=== PATIENT | female | born 1975 | race Caucasian/White ===

== ENCOUNTER 2017-12-01 19:53 | Observation (INO) | payer OTHER ==
[~2017-12-01] VITALS: Ht 170.2 cm; Wt 63.5 kg
[~2017-12-01 19:53] MED LIST: AMBIEN10 MG PO; [UNRECOGNIZED DRUG - OTHER]
[2017-12-01 21:30] LABS: BASOPHILS # (AUTO) 0.1 (0.0-0.1); BASOPHILS % 0.9 % (0.0-1.0); EOSINOPHILS % 0.1 % (0.0-6.0); LYMPHOCYTES # (AUTO) 1.7 (1.0-3.2); LYMPHOCYTES % 20.4 % (18.0-39.1); MEAN CORPUSCULAR HEMOGLOBIN 16.1 pg (28-32); MEAN CORPUSCULAR HGB CONC 24.5 g/dL (31-35); MEAN CORPUSCULAR VOLUME 65.7 fL (81-99); MONOCYTES # (AUTO) 0.3 (0.2-0.8); NEUTROPHILS # (AUTO) 6.3 (2.1-6.9); NEUTROPHILS % 74.1 % (38.7-80.0); PLATELET COUNT 340 x10e3/uL (140-360); RED BLOOD COUNT 4.72 x10e6/uL (3.6-5.1); RED CELL DISTRIBUTION WIDTH 21.5 % (11.7-14.4)
[2017-12-01 21:32] LABS: HEMOGLOBIN 7.6 g/dL (12.0-16.0)
[2017-12-01 21:35] LABS: INR 0.87; PROTHROMBIN TIME 12.3 seconds (11.9-14.5)
[2017-12-01 21:36] LABS: PARTIAL THROMBOPLASTIN TIME 27.5 seconds (23.8-35.5)
[2017-12-01 21:43] LABS: % IRON SATURATION 2 % (15-50); ALANINE AMINOTRANSFERASE 15 IU/L (0-55); ALBUMIN 4.2 g/dL (3.5-5.0); ALBUMIN/GLOBULIN RATIO 0.9 (0.8-2.0); ALKALINE PHOSPHATASE 107 IU/L (40-150); ANION GAP 14.9 mmol/L (8-16); BLOOD UREA NITROGEN 9 mg/dL (7-26); BUN/CREATININE RATIO 11 (6-25); CALCIUM 9.8 mg/dL (8.4-10.2); CARBON DIOXIDE 22 mmol/L (22-29); CHLORIDE 105 mmol/L (98-107); CREATININE, SERUM 0.85 mg/dL (0.57-1.11); EST GLOMERULAR FILTRATION RATE > 60 ML/MIN (60-); GLUCOSE 107 mg/dL (74-118); IRON 15 ug/dL (50-170); POTASSIUM 3.9 mmol/L (3.5-5.1); SODIUM 138 mmol/L (136-145); TOTAL IRON BINDING CAPACITY 759 ug/dL (261-478); TRANSFERRIN 542 mg/dL (180-382)
[2017-12-01 22:03] LABS: FERRITIN < 1.00 ng/mL (4.63-204.00)
[2017-12-02] VITALS: BP 163/73
[2017-12-02] MEDS ORDERED: SODIUM CHLORIDE 0.9% 250ML 250 ML IV ONE
[2017-12-02] MEDS ORDERED: FUROSEMIDE INJ 10 MG/ML 2 ML VIAL IV PRN
[2017-12-02] MEDS ORDERED: ONDANSETRON HCL INJ 2 MG/ML VIAL IV PRN
[2017-12-02] MEDS ORDERED: SODIUM CHLORIDE FLUSH 10 ML SYR INJ PRN
[2017-12-02 02:29] VITALS: BP 163/73
[2017-12-02] MEDS ORDERED: ENALAPRILAT IV INJ 1.25 MG/ML VIAL IV PRN (08:15)
[2017-12-02 08:27] VITALS: BP 109/60
[2017-12-02] MEDS ORDERED: FAMOTIDINE 20 MG TAB PO SCH (08:30)
[2017-12-02 08:36] LABS: BASOPHILS # (AUTO) 0.1 (0.0-0.1); BASOPHILS % 1.3 % (0.0-1.0); EOSINOPHILS % 0.3 % (0.0-6.0); HEMATOCRIT 32.9 % (34.2-44.1); HEMOGLOBIN 8.9 g/dL (12.0-16.0); LYMPHOCYTES # (AUTO) 2.1 (1.0-3.2); LYMPHOCYTES % 27.5 % (18.0-39.1); MEAN CORPUSCULAR HEMOGLOBIN 18.9 pg (28-32); MEAN CORPUSCULAR HGB CONC 27.1 g/dL (31-35); MONOCYTES # (AUTO) 0.7 (0.2-0.8); MONOCYTES % 8.4 % (4.4-11.3); NEUTROPHILS # (AUTO) 4.8 (2.1-6.9); NEUTROPHILS % 62.2 % (38.7-80.0); PLATELET COUNT 275 x10e3/uL (140-360); RED BLOOD COUNT 4.72 x10e6/uL (3.6-5.1); RED CELL DISTRIBUTION WIDTH 23.9 % (11.7-14.4)
[2017-12-02 09:08] LABS: MEAN CORPUSCULAR VOLUME 69.7 fL (81-99)
[2017-12-02 09:11] LABS: ALANINE AMINOTRANSFERASE 12 IU/L (0-55); ALBUMIN 3.6 g/dL (3.5-5.0); ALBUMIN/GLOBULIN RATIO 0.9 (0.8-2.0); ALKALINE PHOSPHATASE 93 IU/L (40-150); ANION GAP 11.9 mmol/L (8-16); BLOOD UREA NITROGEN 11 mg/dL (7-26); BUN/CREATININE RATIO 13 (6-25); CARBON DIOXIDE 24 mmol/L (22-29); CHLORIDE 104 mmol/L (98-107); CREATININE, SERUM 0.88 mg/dL (0.57-1.11); EST GLOMERULAR FILTRATION RATE > 60 ML/MIN (60-); GLUCOSE 91 mg/dL (74-118); POTASSIUM 3.9 mmol/L (3.5-5.1); SODIUM 136 mmol/L (136-145)
[2017-12-02 09:38] VITALS: BP 109/60
[2017-12-02 09:45] LABS: FOLATE 12.4 ng/mL (7.0-15.4)
[2017-12-02] MEDS ORDERED: SODIUM FERRIC GLUCONATE COMPLX 125 MG in SODIUM CHLORIDE 0.9% 100 ML 100 ML IV SCH (10:00)
[2017-12-02 12:37] LABS: ANISOCYTOSIS SLIGHT; HYPOCHROMASIA SLIGHT; LYMPHOCYTES % (MANUAL) 30 % (19-48); MONOCYTES % (MANUAL) 9 % (3.4-9.0); NEUTROPHILS % (MANUAL) 57 % (40-74); POIKILOCYTOSIS SLIGHT; PROMYELOCYTES % (MANUAL) 1 % (0-0)
[2017-12-02 12:38] LABS: PLATELET ESTIMATE ADEQUATE; PLATELET MORPHOLOGY COMMENT NORMAL; RBC MORPHOLOGY COMMENT NORMAL
[2017-12-02 12:41] VITALS: BP 130/62
[2017-12-02 16:47] VITALS: BP 136/81
--- NOTE | 2017-12-02 17:02 | History and Physical ---
SHORTSTAY SUMMARY PRIMARY CARE PROVIDER: Dr. Michel Barillas. ADMITTING DIAGNOSES 1. Symptomatic anemia. 2. Iron deficiency. 3. History of gastric bypass. DISCHARGE DIAGNOSES 1. Symptomatic anemia. 2. Iron deficiency. 3. History of gastric bypass. BRIEF HISTORY: Ms. Cerrato is a 42-year-old lady who came to the ER at the advice of her PCP for anemia. She had been a couple of days ago in the office. She is feeling even more weak and pale since then. REVIEW OF SYSTEMS: She denies fever, chills or weight loss. She denies sinus congestion or sore throat. Denies chest pain or palpitations. She denies shortness of breath, wheezing or cough. She denies abdominal pain, nausea, vomiting or melena. Denies dysuria or flank pain. Denies rash or pruritus. She denies bleeding or bruising. She denies headache, vertigo or loss of consciousness. She denies depression, agitation, homicidal or suicidal ideation. PAST MEDICAL HISTORY: Significant for chronic anemia due to iron deficiency. The patient has had a gastric bypass in the past. She is on no chronic medications. ALLERGIES: SHE HAS A STATED ALLERGY TO IRON, HYDROCODONE, BENADRYL, TRAMADOL AND ZITHROMAX. FAMILY HISTORY: Unremarkable. SOCIAL HISTORY: The patient is . Ukrainian is her primary language. She does not smoke, drink or use illegal drugs, and she is generally independently functioning. PHYSICAL EXAM: PSYCHIATRIC: She is alert and oriented times 3 with normal mood and affect. She has a normal body habitus. Is in no acute distress. VITAL SIGNS: Blood pressure 130/62. Pulse 94 and regular. Respiratory rate 18. O2 sat 100% on room air. Temperature 98.8. HEENT: Head is atraumatic. Eyes are anicteric with clear conjunctivae. Ears and nares are without erythema or discharge. Oropharynx is clear. NECK: Is supple with no mass or thyromegaly. LYMPHATIC SYSTEM: She has no palpable cervical, axillary or inguinal adenopathy. CARDIOVASCULAR: Her heart has regular rate and rhythm without murmur or extra heart sounds. No carotid bruit. No peripheral edema. She has palpable dorsal pedal pulses. RESPIRATORY: Lungs are clear to auscultation and percussion with normal respiratory effort. GASTROINTESTINAL: Abdomen is soft without organomegaly, masses or tenderness. She has normal bowel sounds present. CUTANEOUS: Her skin is warm and dry to touch with no rash or skin breakdown. MUSCULOSKELETAL: Joints are normal alignment without erythema or swelling. She has no calf tenderness. NEUROLOGIC: Exam is nonfocal with intact cranial nerves and no motor or sensory deficits. DIAGNOSTIC STUDIES: CBC shows a white count of 8.49 with a normal differential. Hemoglobin 7.6, hematocrit 31.0 and platelet count of 340,000. After 2 units of packed red cells, CBC shows a white count of 7.72 with a normal differential. Hemoglobin 8.9, hematocrit 32.9 and platelet count 275,000. Coags are normal. Chemistry profile shows normal electrolytes. CO2 24. Creatinine 0.88. BUN 11 for a normal GFR. Glucose 91. Transaminase, bilirubin and alkaline phos are normal. IMPRESSION AND PLAN 1. Symptomatic anemia. Will transfuse the patient 2 units of packed cells and in view of her iron deficiency will not give her iron. Her iron levels were on the low side with ferritin less than 1. Iron level 15, percent saturation 2, all of which are low. Her TSH is 1.411. B12 level of 718 and folic acid 12.4 which are both normal. The patient refuses any iron supplements and she is allergic and they make her bleed. Will discontinue the patient home to resume a regular diet and activity as tolerated. She has no home medications and is not taking iron and vitamins due to adverse reaction. She can follow up with her primary care provider within 2 weeks. Job#: [id number]
[2017-12-02] MEDS ORDERED: TEMAZEPAM 15 MG CAP PO SCH (21:00)
[2017-12-02] MEDS ORDERED: ZOLPIDEM TARTRATE 10 MG TAB PO SCH (21:00)
== END 2017-12-02 17:00 | disposition home or self-care (01) ==
LOC: ER 19:53 → ERHOLD 12-02 00:05 → IMCU 12-02 00:39
PROVIDERS: ADMIT Internal Medicine; ATTEND Internal Medicine
DX: D50.0 Iron deficiency anemia secondary to blood loss (chronic) (principal); Z98.0 Intestinal bypass and anastomosis status; Z88.1 Allergy status to other antibiotic agents; Z88.8 Allergy status to other drugs, medicaments and biological substances; Z91.048 Other nonmedicinal substance allergy status
CPT/HCPCS: 36430; P9016; 36415; 80053; 82270; 82607; 82728; 82746; 83540; 84443; 84466; 85025; 85610; 85730; 86850; 86900; 86920; 93005; 99284; G0378; J2916; J7050

== ENCOUNTER 2018-01-05 13:16 | Inpatient (IN) | payer OTHER ==
[~2018-01-05] VITALS: Ht 170.2 cm; Wt 60.3 kg
[2018-01-05] MEDS ORDERED: MORPHINE SULFATE 4 MG/ML SYR IV STA (13:18)
[2018-01-05] MEDS ORDERED: SODIUM CHLORIDE 0.9% 1000ML 1,000 ML IV STA ×2 (13:18→15:58)
[2018-01-05] MEDS ORDERED: ONDANSETRON HCL INJ 2 MG/ML VIAL IV STA (13:18)
--- OUTSIDE RECORDS SUMMARY | 2018-01-05 13:19 | XMS REPORT | Continuity of Care Document ---
Author Author [facility] Organization [facility] Address [address] [place] [address] Phone Unavailable Care Team Providers Care Garment Turner Name Role Phone KHOA RODRIGUEZ DO PCP Insurance Providers Guarantor Suze Alva Address [address] [place] [address] Email [email or web address] Payer [employer] Pos Policy Number [id number] Subscriber's Name Mackenzie Alva Jr Relationship 01 Group Number [id number] Group Name [employer] Effective Date 06 Advance Directives Directive Response Recorded Date/Time Does the patient have an advance directive? No 12/02/17 2:15am If yes, is advance directive on file with [facility]? No 12/02/17 2:15am If not on file with [facility] will patient provide a copy? No 12/02/17 2:15am Do you have a Directive to Physician? No 12/01/17 7:51pm Do you have a Medical Power of Home Care Assistant? No 12/01/17 7:51pm Do you have an out of hospital Do Not Resuscitate Order? No 12/01/17 7:51pm Do you have any special needs we should be aware of? No 12/01/17 7:51pm Do you have a support person here with you today? No 12/01/17 7:51pm Did patient receive Notice of Privacy Practices? Yes 12/01/17 7:51pm Did patient receive patient rights and responsibilities? Yes 12/01/17 7:51pm Problems Medical Problem Onset Date Status Anemia 04/21/2015 Acute Symptomatic anemia Unknown Medications Current Home MedicationsNo current home medication information available. Past Home Medications Medication Directions Ordered Status Zolpidem Tartrate (Ambien) 10 Mg Tablet, 20 Mg Oral Bedtime Discontinued Social History Social History Problem Response Recorded Date/Time Onset Date Status Hx Psychiatric Problems Yes 12/02/2017 2:15am Not Applicable Not Applicable Hx Eating Disorder Yes 12/02/2017 2:15am Not Applicable Not Applicable Hx Substance Use Disorder No 12/02/2017 2:15am Not Applicable Not Applicable Hx Depression Yes 12/02/2017 2:15am Not Applicable Not Applicable Hx Alcohol Use No 12/02/2017 2:15am Not Applicable Not Applicable Hx Substance Use Treatment No 12/02/2017 2:15am Not Applicable Not Applicable Hx Physical Abuse No 12/02/2017 2:15am Not Applicable Not Applicable Smoking Status Start Date Stop Date Unknown if ever smoked Hospital Discharge Instructions No hospital discharge instruction information available. Plan of Care Discharge Date 12/02/17 5:00pm Disposition HOME, SELF-CARE Instructions/Education Provided Anemia Prescriptions See Medication Section Additional Instructions/Education Regular diet Activity as tolerated f/u PCP w/in 2wks Functional Status Query Response Date Recorded Assistive Devices None December 02, 2017 2:29am Ambulation Ability Independent December 02, 2017 2:29am Toileting Ability Independent December 02, 2017 2:29am Allergies, Adverse Reactions, Alerts Allergen Type Severity Reaction Status Last Updated Iron Allergy Unknown Active 12/02/17 Hydrocodone Allergy Mild Active 09/14/10 Azithromycin Allergy Severe HIVES Active 09/14/10 Tramadol Allergy Intermediate TONGUE SWELLING, ITCHING, RASH Active Diphenhydramine Allergy Intermediate ADVERSE Active 09/14/10 Immunizations No immunization information available. Vital Signs Acute Vital Signs Vital Response Date/Time Temperature (Fahrenheit) 99.2 degrees F (97.6 - 99.5) 12/02/2017 4:47pm Pulse Pulse Rate (adult) 87 bpm (60 - 90) 12/02/2017 4:47pm Respiratory Rate 18 bpm (12 - 24) 12/02/2017 4:47pm Blood Pressure 136/81 mm Hg 12/02/2017 4:47pm Height 5 ft 7 in 12/01/2017 9:08pm Weight 140 lb 12/02/2017 2:15am Body Mass Index 21.9 kg/m^2 12/02/2017 2:15am Results Laboratory Results Test Name Result Units Flags Reference Collection Date/Time Result Date/ Time Comments White Blood Count 7.72 x10e3/uL 4.8-10.8 12/02/2017 8:13am 12/02/2017 9 :09am Red Blood Count 4.72 x10e6/uL 3.6-5.1 12/02/2017 8:13am 12/02/2017 9: 09am Hemoglobin 8.9 g/dL L 12.0-16.0 12/02/2017 8:13am 12/02/2017 9:09am Hematocrit 32.9 % L 34.2-44.1 12/02/2017 8:13am 12/02/2017 9:09am Mean Corpuscular Volume 69.7 fL # L 81-99 12/02/2017 8:13am 12/02/2017 9: 09am verified previous results Mean Corpuscular Hemoglobin 18.9 pg L 28-32 12/02/2017 8:132017 9:09am Mean Corpuscular Hemoglobin Concent 27.1 g/dL L 31-35 12/02/2017 8:1312/02/2017 9:09am Red Cell Distribution Width 23.9 % H 11.7-14.4 12/02/2017 8:132017 9:09am Platelet Count 275 x10e3/uL 140-360 12/02/2017 8:13am 12/02/2017 9: 09am Neutrophils (%) (Auto) 62.2 % 38.7-80.0 12/02/2017 8:13am 12/02/2017 9: 09am Lymphocytes (%) (Auto) 27.5 % 18.0-39.1 12/02/2017 8:12/02/2017 9: 09am Monocytes (%) (Auto) 8.4 % 4.4-11.3 12/02/2017 8:12/02/2017 9: 09am Eosinophils (%) (Auto) 0.3 % 0.0-6.0 12/02/2017 8:12/02/2017 9: 09am Basophils (%) (Auto) 1.3 % H 0.0-1.0 12/02/2017 8:12/02/2017 9: 09am IM GRANULOCYTES % 0.3 % 0.0-1.0 12/02/2017 8:12/02/2017 9:09am Neutrophils # (Auto) 4.8 2.1-6.9 12/02/2017 8:12/02/2017 9:09am Lymphocytes # (Auto) 2.1 1.0-3.2 12/02/2017 8:12/02/2017 9:09am Monocytes # (Auto) 0.7 0.2-0.8 12/02/2017 8:12/02/2017 9:09am Eosinophils # (Auto) 0.0 0.0-0.4 12/02/2017 8:12/02/2017 9:09am Basophils # (Auto) 0.1 0.0-0.1 12/02/2017 8:12/02/2017 9:09am Absolute Immature Granulocyte (auto 0.02 x10e3/uL 0-0.1 12/02/2017 8: 12/02/2017 9:09am Differential Total Cells Counted 100 12/02/2017 8:12/02/2017 12:38pm Neutrophils % (Manual) 57 % 40-74 12/02/2017 8:12/02/2017 12:38pm Lymphocytes % (Manual) 30 % 19-48 12/02/2017 8:12/02/2017 12:38pm Monocytes % (Manual) 9 % 3.4-9.0 12/02/2017 8:12/02/2017 12:38pm Basophils % (Manual) 3 % H 0-1.5 12/02/2017 8:12/02/2017 12:38pm Promyelocytes % 1 % H 0-0 12/02/2017 8:1312/02/2017 12:38pm Platelet Estimate ADEQUATE 12/02/2017 8:12/02/2017 12:38pm Platelet Morphology Comment NORMAL 12/02/2017 8:1312/02/2017 12: 38pm Hypochromasia SLIGHT 12/02/2017 8:1312/02/2017 12:38pm Poikilocytosis SLIGHT 12/02/2017 8:12/02/2017 12:38pm Anisocytosis SLIGHT 12/02/2017 8:1312/02/2017 12:38pm Red Cell Morphology Comment NORMAL 12/02/2017 8:1312/02/2017 12: 38pm Prothrombin Time 12.3 seconds 11.9-14.5 12/01/2017 9:04pm 12/01/2017 9: 35pm Prothromb Time International Ratio 0.87 12/01/2017 9:04pm 2017 9:35pm Oral Anticoagulant Therapy INR Values: 1. Low Intensity Therapy 1.5 - 2.0 2. Moderate Intensity Therapy 2.0 - 3.0 3. High Intensity Therapy(1) 2.5 - 3.5 4. High Intensity Therapy(2) 3.0 - 4.0 5. Panic Value INR > 5.0 Activated Partial Thromboplast Time 27.5 seconds 23.8-35.5 12/01/2017 9: 04pm 12/01/2017 9:39pm Sodium Level 136 mmol/L 136-145 12/02/2017 8:13am 12/02/2017 9:13am Potassium Level 3.9 mmol/L 3.5-5.1 12/02/2017 8:1312/02/2017 9:13am Chloride Level 104 mmol/L 98-107 12/02/2017 8:13am 12/02/2017 9:13am Carbon Dioxide Level 24 mmol/L 22-29 12/02/2017 8:13am 12/02/2017 9: 13am Anion Gap 11.9 mmol/L 8-16 12/02/2017 8:13am 12/02/2017 9:13am Blood Urea Nitrogen 11 mg/dL 7-12/02/2017 8:1312/02/2017 9:13am Creatinine 0.88 mg/dL 0.57-1.11 12/02/2017 8:13am 12/02/2017 9:13am BUN/Creatinine Ratio 13 6-25 12/02/2017 8:13am 12/02/2017 9:13am Estimat Glomerular Filtration Rate > 60 ML/MIN 60- 12/02/2017 8:13am 9:13am Ranges were taken from the National Kidney Disease Education Program and the National Kidney Foundation literature. Reference ranges: 60 or greater: Normal 16-59 (for 3 consecutive months): Chronic kidney disease 15 or less: Kidney failure Glucose Level 91 mg/dL 74-118 12/02/2017 8:13am 12/02/2017 9:13am Calcium Level 9.0 mg/dL 8.4-10.2 12/02/2017 8:13am 12/02/2017 9:13am Iron Level 15 ug/dL L 50-170 12/01/2017 9:04pm 12/01/2017 9:45pm Total Iron Binding Capacity 759 ug/dL H 261-478 12/01/2017 9:04pm 2017 9:45pm Percent Iron Saturation 2 % L 15-50 12/01/2017 9:04pm 12/01/2017 9:45pm Transferrin 542 mg/dL H 180-382 12/01/2017 9:04pm 12/01/2017 9:45pm Ferritin < 1.00 ng/mL L 4.63-204.00 12/01/2017 9:04pm 12/01/2017 10: 03pm Total Bilirubin 1.4 mg/dL H 0.2-1.2 12/02/2017 8:13am 12/02/2017 9:13am Aspartate Amino Transf (AST/SGOT) 20 IU/L 5-34 12/02/2017 8:13am 2017 9:13am Alanine Aminotransferase (ALT/SGPT) 12 IU/L 0-55 12/02/2017 8:13am 06/2018 9:13am Total Protein 7.6 g/dL 6.5-8.1 12/02/2017 8:13am 12/02/2017 9:13am Albumin 3.6 g/dL 3.5-5.0 12/02/2017 8:13am 12/02/2017 9:13am Globulin 4.0 g/dL H 2.3-3.5 12/02/2017 8:13am 12/02/2017 9:13am Albumin/Globulin Ratio 0.9 0.8-2.0 12/02/2017 8:13am 12/02/2017 9: 13am Alkaline Phosphatase 93 IU/L 40-150 12/02/2017 8:13am 12/02/2017 9: 13am Vitamin B12 Level 718 pg/mL 213-816 12/02/2017 8:13am 12/02/2017 9: 50am Folate 12.4 ng/mL 7.0-15.4 12/02/2017 8:13am 12/02/2017 9:50am Thyroid Stimulating Hormone (TSH) 1.411 uIU/mL 0.350-4.940 12/02/2017 8: 13am 12/02/2017 10:07am Stool Occult Blood NEGATIVE NEGATIVE 12/02/2017 12:49pm 12/02/2017 1: 33pm Procedures No procedure information available. Encounters Encounter Location Arrival/Admit Date Discharge/Depart Date Attending Provider Discharged Inpatient (obs) [facility] 12/02/17 12:05am 5:00pm BIANCA HARTMAN MD
[2018-01-05] MEDS ORDERED: MORPHINE SULFATE 2 MG/ML SYR IV SCH (13:45)
[2018-01-05 13:59] LABS: BILIRUBIN,URINE NEGATIVE (NEGATIVE); CLARITY,URINE CLEAR (CLEAR); COLOR,URINE YELLOW (YELLOW); KETONES,URINE NEGATIVE (NEGATIVE); LEUKOCYTE ESTERASE ,URINE NEGATIVE (NEGATIVE); NITRITE,URINE NEGATIVE (NEGATIVE); PROTEIN,URINE DIPSTICK NEGATIVE (NEGATIVE); URINE UROBILINOGEN 0.2 mg/dL (0.2 - 1)
[2018-01-05 14:14] LABS: BACTERIA,URINE FEW /HPF; EPITHELIAL CELLS,URINE FEW /LPF; RBC,URINE 0-5 /HPF (0-5)
[2018-01-05 14:16] LABS: ALANINE AMINOTRANSFERASE 12 IU/L (0-55); ALBUMIN/GLOBULIN RATIO 0.9 (0.8-2.0); ALKALINE PHOSPHATASE 72 IU/L (40-150); ANION GAP 11.8 mmol/L (8-16); BLOOD UREA NITROGEN 12 mg/dL (7-26); BUN/CREATININE RATIO 15 (6-25); CARBON DIOXIDE 24 mmol/L (22-29); CHLORIDE 105 mmol/L (98-107); CREATININE, SERUM 0.81 mg/dL (0.57-1.11); EST GLOMERULAR FILTRATION RATE > 60 ML/MIN (60-); GLUCOSE 160 mg/dL (74-118); LIPASE 56 U/L (8-78); POTASSIUM 3.8 mmol/L (3.5-5.1); SODIUM 137 mmol/L (136-145)
[2018-01-05 14:33] LABS: BASOPHILS # (AUTO) 0.1 (0.0-0.1); BASOPHILS % 0.6 % (0.0-1.0); HEMATOCRIT 24.4 % (34.2-44.1); LYMPHOCYTES # (AUTO) 0.6 (1.0-3.2); LYMPHOCYTES % 5.7 % (18.0-39.1); MEAN CORPUSCULAR HEMOGLOBIN 20.4 pg (28-32); MEAN CORPUSCULAR HGB CONC 27.9 g/dL (31-35); MEAN CORPUSCULAR VOLUME 73.1 fL (81-99); MONOCYTES # (AUTO) 0.3 (0.2-0.8); MONOCYTES % 3.1 % (4.4-11.3); NEUTROPHILS # (AUTO) 8.8 (2.1-6.9); NEUTROPHILS % 89.8 % (38.7-80.0); PLATELET COUNT 445 x10e3/uL (140-360); RED BLOOD COUNT 3.34 x10e6/uL (3.6-5.1); RED CELL DISTRIBUTION WIDTH 25.2 % (11.7-14.4)
[2018-01-05 14:35] LABS: HEMOGLOBIN 6.8 g/dL (12.0-16.0)
[2018-01-05 15:00] LABS: INR 0.99; PROTHROMBIN TIME 12.3 seconds (11.9-14.5)
[2018-01-05 15:01] LABS: PARTIAL THROMBOPLASTIN TIME 27.5 seconds (23.8-35.5)
[2018-01-05] MEDS ORDERED: PANTOPRAZOLE 40 MG 10ML VIAL IV STA (15:58)
[2018-01-05] MEDS ORDERED: ACETAMINOPHEN 325 MG TAB PO STA (15:58)
[2018-01-05] MEDS ORDERED: SODIUM CHLORIDE 0.9% 250ML 250 ML IV ONE (16:00)
[2018-01-05] MEDS: SODIUM CHLORIDE 0.9% 1000ML 1,000 ML IV SCH (16:02)
[2018-01-05] MEDS ORDERED: MORPHINE SULFATE 2 MG/ML SYR IV PRN (16:15)
[2018-01-05] MEDS ORDERED: SODIUM CHLORIDE 0.9% 50ML 50 ML ONE (16:24)
[2018-01-05] MEDS ORDERED: IOPAMIDOL 370 MG/ML 200 ML INFUS..BTL INJ ONE (16:25)
--- NOTE | 2018-01-05 16:30 | Diagnostic Imaging Report ---
PROCEDURE: CT ABDOMEN AND PELVIS WITH CONTRAST TECHNIQUE: The abdomen and pelvis were scanned utilizing a multidetector helical scanner from the diaphragm to the lesser trochanter after the IV administration of 100 cc of Isovue 370 and the oral administration of water. Coronal and sagittal multiplanar reformations were obtained. DLP: 216.97 mGy*cm COMPARISON: [facility], CT, CT ABDOMEN/PELVIS W, 04/22/2015, 22:34. INDICATIONS: RIGHT LOWER QUADRANT ABDOMINAL PAIN FINDINGS: LOWER THORAX: Tiny right pleural effusion. HEPATOBILIARY: No focal hepatic lesions. No biliary ductal dilatation. Gallbladder is absent. SPLEEN: No splenomegaly. PANCREAS: No focal masses or ductal dilatation. ADRENALS: No adrenal nodules. KIDNEYS/URETERS: No hydronephrosis, stones, or solid mass lesions. PELVIC ORGANS/BLADDER: Unremarkable. There is a Lee catheter and air present within the bladder. PERITONEUM / RETROPERITONEUM: Mild amount of abdominal and pelvic ascites. This is new compared to the prior study. LYMPH NODES: No lymphadenopathy. VESSELS: Unremarkable. GI TRACT: No distention or wall thickening. Postsurgical changes associated with a gastric bypass. The appendix is not visualized. BONES AND SOFT TISSUES: Unremarkable. IMPRESSION: 1. Mild amount of abdominal and pelvic ascites appears new compared to the prior study. 2. Otherwise no acute abdominal or pelvic abnormality. 3. There is a tiny right pleural effusion. Cameron Stearns D.O. Dictated by: Cameron Stearns D.O. on 01/05/2018 at 16:30 Electronically approved by: Cameron Stearns D.O. on 01/05/2018 at 16:30
[2018-01-05] MEDS: PANTOPRAZOLE 40 MG 10ML VIAL IV SCH (17:00)
[2018-01-05] MEDS: ONDANSETRON HCL INJ 2 MG/ML VIAL IV PRN ×2 (17:06→23:30)
[2018-01-05] MEDS: CEFTRIAXONE SOD 1 GM VIAL IV SCH (17:06)
[2018-01-05 18:24] VITALS: BP 114/60
[2018-01-05 18:28] VITALS: BP 114/60
[2018-01-05 18:29] VITALS: BP 114/60
[2018-01-05] MEDS ORDERED: HYDRALAZINE HCL 20 MG/ML VIAL IV PRN (18:45)
[2018-01-05] MEDS ORDERED: LORAZEPAM INJ 2 MG/ML VIAL IV PRN (18:45)
[2018-01-05] MEDS ORDERED: ACETAMINOPHEN 650 MG SUPP PR PRN (18:45)
[2018-01-05 18:56] VITALS: BP 114/60
[2018-01-05] MEDS: HYDROMORPHONE 1MG/1ML INJ IV PRN ×2 (19:05→23:29)
[2018-01-05 20:00] VITALS: BP 139/72
[2018-01-05] MEDS: FAMOTIDINE 20 MG/2 ML VIAL IV PRN ×2 (20:00→23:20)
[2018-01-05] MEDS: ACETAMINOPHEN 325 MG TAB PO PRN ×2 (23:12→23:23)
[2018-01-05] MEDS ORDERED: PEG (High)/E-LYTE SOLN 4,000 ML BTL PO ONE (23:15)
[2018-01-06] VITALS (7 sets, daily range): BP systolic 117–140; BP diastolic 68–86
[2018-01-06] MEDS: ACETAMINOPHEN/CODEINE 300MG - 30MG TAB PO PRN ×2 (03:25→15:40)
[2018-01-06] MEDS: SODIUM CHLORIDE 0.9% 1000ML 1,000 ML IV SCH ×6 (05:00→21:50)
[2018-01-06] MEDS: ONDANSETRON HCL INJ 2 MG/ML VIAL IV PRN (06:13)
[2018-01-06] MEDS: HYDROMORPHONE 1MG/1ML INJ IV PRN ×3 (06:13→20:48)
[2018-01-06 08:03] LABS: BASOPHILS % 0.3 % (0.0-1.0); HEMATOCRIT 41.8 % (34.2-44.1); HEMOGLOBIN 12.5 g/dL (12.0-16.0); LYMPHOCYTES # (AUTO) 0.3 (1.0-3.2); LYMPHOCYTES % 1.8 % (18.0-39.1); MEAN CORPUSCULAR HEMOGLOBIN 22.9 pg (28-32); MEAN CORPUSCULAR HGB CONC 29.9 g/dL (31-35); MEAN CORPUSCULAR VOLUME 76.7 fL (81-99); MONOCYTES # (AUTO) 0.9 (0.2-0.8); MONOCYTES % 6.5 % (4.4-11.3); NEUTROPHILS # (AUTO) 13.1 (2.1-6.9); NEUTROPHILS % 91.2 % (38.7-80.0); PLATELET COUNT 764 x10e3/uL (140-360); RED BLOOD COUNT 5.45 x10e6/uL (3.6-5.1); RED CELL DISTRIBUTION WIDTH 25.7 % (11.7-14.4)
[2018-01-06 08:21] LABS: ALBUMIN/GLOBULIN RATIO 0.8 (0.8-2.0); ANION GAP 16.6 mmol/L (8-16); CALCIUM 9.2 mg/dL (8.4-10.2); CREATININE, SERUM 1.23 mg/dL (0.57-1.11); POTASSIUM 4.6 mmol/L (3.5-5.1)
[2018-01-06 08:58] LABS: MAGNESIUM 1.6 MG/DL (1.3-2.1)
[2018-01-06] MEDS: PANTOPRAZOLE 40 MG 10ML VIAL IV SCH (09:00)
[2018-01-06] MEDS ORDERED: HYDRALAZINE HCL 20 MG/ML VIAL IV PRN (09:00)
[2018-01-06 09:24] LABS: THYROID STIMULATING HORMONE 0.307 uIU/mL (0.350-4.940)
[2018-01-06 09:25] LABS: FERRITIN 6.06 ng/mL (4.63-204.00)
[2018-01-06 09:27] LABS: BAND NEUTROPHILS % (MANUAL) 4 %; LYMPHOCYTES % (MANUAL) 1 % (19-48); MONOCYTES % (MANUAL) 8 % (3.4-9.0); NEUTROPHILS % (MANUAL) 87 % (40-74)
[2018-01-06 09:28] LABS: PLATELET ESTIMATE MODERATELY INCREASED; PLATELET MORPHOLOGY COMMENT FEW GIANT; RBC MORPHOLOGY COMMENT ABNORMAL
[2018-01-06 09:30] LABS: ANISOCYTOSIS MODERATE; POIKILOCYTOSIS MODERATE
[2018-01-06 09:35] LABS: FOLATE 11.3 ng/mL (7.0-15.4)
[2018-01-06] MEDS ORDERED: PANTOPRAZOLE 40 MG 10ML VIAL IV SCH (13:15)
--- NOTE | 2018-01-06 13:25 | Diagnostic Imaging Report ---
PROCEDURE:X-RAY ABDOMEN - KUB COMPARISON:CT dated 01/05/2018 INDICATIONS:ABDOMINAL PAIN FINDINGS: Dilated air-filled bowel loops in the left abdomen. No rectal air is visualized. No signs of pneumoperitoneum. Surgical clips overlying upper abdomen. No acute osseous abnormality. CONCLUSION: Dilated bowel loops, mostly in the left abdomen, suspicious for postsurgical ileus versus at least partial bowel obstruction. Recommend short-term followup. Dictated by: Nicola De M.D. on 01/06/2018 at 13:25 Electronically approved by: Nicola De M.D. on 01/06/2018 at 13:25
[2018-01-06] MEDS ORDERED: DEXTROSE 50% SYRINGE 50 ML IV PRN (13:30)
[2018-01-06] MEDS: PANTOPRAZOLE INJ 40 MG in SODIUM CHLORIDE 0.9% 50ML 50 ML IV SCH ×3 (13:57→23:15)
--- NOTE | 2018-01-06 14:13 | History and Physical ---
PRIMARY CARE PROVIDER: Dr. Michel Barillas. CHIEF COMPLAINT: Abdominal pain. HISTORY OF PRESENT ILLNESS: Ms. Cerrato is a 42-year-old lady presenting with epigastric and right upper quadrant abdominal pain for the last couple of days. The patient was seen here a couple of weeks ago for weakness and found to be anemic, was given 2 units of blood and sent home. Saw Dr. Bliss, GI doctor, as an outpatient a few days ago but has had no endoscopy done yet. Patient presents now with epigastric and right upper quadrant pain for the last couple of days, again feeling weak and short of breath, and was found to have a hemoglobin of 6.8. REVIEW OF SYSTEMS: She denies fever, chills or weight loss. She denies sinus congestion or sore throat. She denies chest pain or palpitations. She has shortness of breath and dyspnea with exertion. She denies wheezing or cough. She has severe abdominal pain in the epigastric and right upper quadrant area. She has had some nausea and vomiting. She denies diarrhea. She denies hematemesis or melena. She denies dysuria or flank pain. She denies rash or pruritus. She denies joint pain or swelling. She denies headache, vertigo or loss of consciousness. She denies bleeding or bruising. She denies depression, agitation, homicidal or suicidal ideation. PAST MEDICAL HISTORY: Essentially unremarkable. She is on no chronic medication. PAST SURGICAL HISTORY: Includes gastric bypass in 2004. 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 ALLERGIES: SHE HAS STATED ALLERGIES TO BENADRYL, TRAMADOL, ZITHROMAX, HYDROCODONE AND IRON. FAMILY HISTORY: Unremarkable. SOCIAL HISTORY: The patient is . She is . Indian is her primary language. She does not smoke, drink or use illegal drugs. She is generally independently functioning. PHYSICAL EXAMINATION PSYCHIATRIC: She is alert and oriented times 3 with normal mood and affect. CONSTITUTIONAL: She has a normal body habitus. She is in no acute distress. VITAL SIGNS: Blood pressure 119/68. Pulse 101 and regular. Respiratory rate 18. O2 sat 95% on room air. Temperature 98.4. HEENT: Head is atraumatic. Eyes are anicteric with clear conjunctivae. Ears and nares are without erythema or discharge. Oropharynx is clear. NECK: Supple with no mass or thyromegaly. LYMPHATIC SYSTEM: She has no palpable cervical, axillary or inguinal adenopathy. CARDIOVASCULAR: Her heart has a regular rate and rhythm without murmur or extra heart sound. She has no carotid bruit. She has no peripheral edema. She has palpable dorsal pedal pulses. RESPIRATORY: Lungs are clear to auscultation and percussion with normal respiratory effort. GASTROINTESTINAL: Abdomen is tense. She has severe tenderness in the epigastric and right upper quadrant area with some guarding. No rebound. She has no hepatosplenomegaly or masses palpable, and normal bowel sounds are present. CUTANEOUS: Her skin is warm and dry to touch. No rash or skin breakdown. MUSCULOSKELETAL: Her joints are in normal alignment without erythema or swelling. She has no calf tenderness. NEUROLOGIC: Exam is nonfocal with intact cranial nerves and no motor or sensory deficits. DIAGNOSTIC STUDIES: CT scan of the abdomen shows a small amount of ascites but, otherwise, is unremarkable and shows no acute disease. Her UA has 6 to 10 white cells. Culture is negative at 24 hours. Her fecal occult blood test was positive. Her serum was negative. TSH 0.307. Iron 29, TIBC 501, and percent saturation 6, all indicating iron deficiency. B12 1461 and folic acid 11.3, both normal. Her CBC shows a white count of 9.85 with 90% neutrophils, 6% lymphocytes, 3% monocytes, hemoglobin 6.8, hematocrit 24.4, platelet count 445,000. Coags are normal. Her chemistry shows normal electrolytes, CO2 24, creatinine 0.81, BUN 12, glucose 160 and calcium 8.0. IMPRESSION AND PLAN 1. Severe abdominal pain. Etiology is unclear. CT scan is not helpful. Possible ulcer in view of her anemia. GI has been consulted for endoscopy. 2. Upper gastrointestinal bleed with positive fecal occult blood test. The patient has been started on IV Protonix drip, and GI has been consulted. 3. Acute blood loss anemia. The patient has received 2 units of blood, resulting in hemoglobin of 12.5 and hematocrit 41.8. 4. Iron deficiency. We will have to monitor for now, as patient is allergic to iron. May require hem consult before this is all done. 5. Hyperglycemia without previous diagnosis of diabetes. Will place the patient on sliding scale insulin and check a hemoglobin A1c level. 6. For prophylaxis, the patient will be using SCDs for DVT prophylaxis and Protonix for GI prophylaxis. Job#: [id number] MH
[2018-01-06] MEDS ORDERED: SOD PHOSPHATE/SOD BIPHOSPHATE ENEMA 132 ML BTL PR NR (15:00)
[2018-01-06] MEDS ORDERED: GLYCOPYRROLATE INJ 1MG/ 5 ML SYR ONE (15:21)
[2018-01-06] MEDS ORDERED: LIDOCAINE HCL 2% LOCAL INJ 5 ML SDV VIAL INJ ONE (15:21)
[2018-01-06] MEDS ORDERED: PHENYLEPHRINE HCL 1% 10 MG/ML VIAL ONE (15:21)
[2018-01-06] MEDS ORDERED: NEOSTIGMINE 5 MG/5ML SYR ONE (15:21)
[2018-01-06] MEDS ORDERED: DEXAMETHASONE SOD PHOS INJ 4 MG/ML VIAL ONE (15:21)
[2018-01-06] MEDS ORDERED: PROPOFOL IV EMULSION 10 MG/ML 20 ML VIAL ONE (15:21)
[2018-01-06] MEDS ORDERED: ROCURONIUM BROMIDE 10 MG/ML 5ML VIAL ONE (15:21)
[2018-01-06] MEDS ORDERED: ONDANSETRON HCL INJ 2 MG/ML VIAL ONE (15:21)
[2018-01-06] MEDS ORDERED: SEVOFLURANE INHAL SOLN 250 ML PEN BTL ONE (15:21)
[2018-01-06] MEDS: INSULIN REGULAR, HUMAN 100 UNIT/1 ML 3ML VIAL SQ SCH ×2 (15:34→21:00)
[2018-01-06] MEDS: CEFTRIAXONE SOD 1 GM VIAL IV SCH (16:27)
[2018-01-06] MEDS ORDERED: FENTANYL CITRATE/PF 100MCG/2 ML INJ ONE (18:28)
[2018-01-06] MEDS ORDERED: MIDAZOLAM HCL 2 MG/2 ML VIAL ONE (18:28)
--- NOTE | 2018-01-06 19:37 | Consultation ---
DATE OF CONSULTATION: January 06, 2018 SURGICAL CONSULTATION CHIEF COMPLAINT: Abdominal pain. HISTORY OF PRESENT ILLNESS: The patient is a 42-year-old female with a several-day history of epigastric abdominal pain in the right upper quadrant particularly, with nausea, anorexia. No vomiting. The patient has no flatus or bowel movements. The patient has a history of gastric bypass 2005 complicated by volvulus. The patient has had chronic anemia requiring recurrent blood transfusions, last given 2 weeks ago. The patient is again noted to be anemic. PAST MEDICAL HISTORY: As mentioned is positive for chronic anemia with history of multiple surgeries including gastric bypass, repair of gastric volvulus and colonic perforations. ALLERGIES: SHE IS ALLERGIC TO TRAMADOL, CODEINE AND BENADRYL. REVIEW OF SYSTEMS: She has no chest pain. No shortness of breath. SOCIAL HABITS: No smoking or alcohol abuse. PHYSICAL EXAMINATION: VITALS: Stable. The patient is mildly tachycardic, 120 of heart rate. GENERAL: She is awake, alert, in moderate discomfort. HEENT: Sclerae anicteric. NECK: Supple. LUNGS: Clear. HEART: Regular rate and rhythm. ABDOMEN: Guarding diffusely with tenderness to palpation in all 4 quadrants. No rebound. EXTREMITIES: Without cyanosis or edema. LAB DATA: White cell count is 14, hemoglobin of 12, platelet count of 764. INR of 0.9. CT OF THE ABDOMEN: Abdominal and pelvic ascites. ABDOMINAL X-RAY: Showed evidence of dilated loops of small bowel in the left abdomen suggestive of partial bowel obstruction. ASSESSMENT: Abdominal pain with distended small bowel in patient who had gastric bypass and gastric volvulus. Suspicious for internal herniations. PLAN: Diagnostic laparoscopy, possible open bowel resection. Thank you for the consultation. Job#: [id number] MTDD
[2018-01-06] MEDS ORDERED: BUPIVACAINE 0.5%/EPI 30 ML SDV INJ ONE (22:00)
[2018-01-06] MEDS ORDERED: CEFOXITIN SOD 1 GM VIAL ONE (22:42)
[2018-01-07] VITALS (8 sets, daily range): BP systolic 109–147; BP diastolic 64–80
[2018-01-07] MEDS: SODIUM CHLORIDE 0.9% 1000ML 1,000 ML IV SCH ×4 (01:08→18:37)
[2018-01-07] MEDS: CEFOXITIN 1GM/ DEXTROSE 50ML 50 ML IV SCH ×2 (01:51→06:44)
[2018-01-07] MEDS: PANTOPRAZOLE INJ 40 MG in SODIUM CHLORIDE 0.9% 50ML 50 ML IV SCH ×4 (04:15→20:40)
--- NOTE | 2018-01-07 05:29 | Operative Report ---
DATE OF PROCEDURE: January 06, 2018 PREOPERATIVE DIAGNOSIS: Acute abdomen. POSTOPERATIVE DIAGNOSIS: Perforated duodenal ulcer. OPERATIVE PROCEDURES: 1. Exploratory laparotomy. 2. Repair of perforated duodenal ulcer. ANESTHESIA: General endotracheal, Dr. Alfred. INDICATIONS: A 42-year-old female with history of progressive abdominal pain over the last several days with anorexia and acute abdomen on physical exam. Patient had consented for exploratory laparotomy and possible bowel resection. PROCEDURE FINDINGS: Perforated duodenal ulcer with diffuse bilious peritonitis. DESCRIPTION: The patient brought to the OR intubated in supine position. She was somewhat hypotensive requiring aggressive fluid resuscitation. A supraumbilical incision is made down to the fascia, which is then opened and bilious fluid is noted, therefore a full midline laparotomy incision is carried out through the linea alba, large amount of bilious ascites is encountered and suctioned out, at least 1 to 2 liters of this fluid is evacuated by suctioning. We then proceeded to explore the abdominal cavity and the perforated site is noted to be in the duodenal ulcer area with an ulcer measuring approximately 1 cm, which is closed with interrupted 2-0 silk stitches. We also placed a piece of omental patch over the repair site and anchored in place with interrupted 2-0 silk stitches as a onlay patch. The operative sanchez and peritoneal cavity are then irrigated with 8 liters of saline solution until all the bilious contamination is evacuated. A 15-Tamazight Rod drain is placed in the Min pouch and taken out through the stab wound in the right lower quadrant. The midline fascia is then closed with running #0 PDS, reinforced with interrupted #0 Vicryl, skin closed with nadeen. Patient was then extubated and transported to recovery room. Estimated blood loss for the procedure is approximately 20 mL. Job#: [id number]
[2018-01-07] MEDS: HYDROMORPHONE 1MG/1ML INJ IV PRN ×2 (07:27→23:00)
[2018-01-07] MEDS: ONDANSETRON HCL INJ 2 MG/ML VIAL IV PRN (07:29)
[2018-01-07] MEDS: INSULIN REGULAR, HUMAN 100 UNIT/1 ML 3ML VIAL SQ SCH ×4 (08:44→20:40)
[2018-01-07] MEDS ORDERED: SODIUM CHLORIDE 0.9% 1000ML 1,000 ML IV SCH ×4 (09:30→15:00)
[2018-01-07] MEDS: CEFOXITIN SOD 1 GM VIAL IV SCH ×3 (12:30→23:22)
[2018-01-07] MEDS: ACETAMINOPHEN/CODEINE 300MG - 30MG TAB PO PRN (14:15)
[2018-01-07] MEDS: ACETAMINOPHEN 325 MG TAB PO PRN (16:02)
[2018-01-07] MEDS: CEFTRIAXONE SOD 1 GM VIAL IV SCH (16:31)
[2018-01-08] VITALS (8 sets, daily range): BP systolic 130–148; BP diastolic 63–87
[2018-01-08] MEDS: PANTOPRAZOLE INJ 40 MG in SODIUM CHLORIDE 0.9% 50ML 50 ML IV SCH ×5 (00:17→20:39)
[2018-01-08] MEDS: SODIUM CHLORIDE 0.9% 1000ML 1,000 ML IV SCH ×3 (00:59→19:36)
[2018-01-08] MEDS: HYDROMORPHONE 1MG/1ML INJ IV PRN ×2 (02:39→06:35)
[2018-01-08] MEDS: CEFOXITIN SOD 1 GM VIAL IV SCH (06:16)
[2018-01-08] MEDS: INSULIN REGULAR, HUMAN 100 UNIT/1 ML 3ML VIAL SQ SCH ×4 (07:30→20:39)
[2018-01-08 07:53] LABS: BASOPHILS % 0.2 % (0.0-1.0); HEMATOCRIT 29.5 % (34.2-44.1); HEMOGLOBIN 8.8 g/dL (12.0-16.0); LYMPHOCYTES # (AUTO) 0.7 (1.0-3.2); LYMPHOCYTES % 3.7 % (18.0-39.1); MEAN CORPUSCULAR HEMOGLOBIN 22.6 pg (28-32); MEAN CORPUSCULAR HGB CONC 29.8 g/dL (31-35); MEAN CORPUSCULAR VOLUME 75.8 fL (81-99); MONOCYTES % 5.2 % (4.4-11.3); NEUTROPHILS # (AUTO) 16.8 (2.1-6.9); NEUTROPHILS % 90.4 % (38.7-80.0); PLATELET COUNT 397 x10e3/uL (140-360); RED BLOOD COUNT 3.89 x10e6/uL (3.6-5.1); RED CELL DISTRIBUTION WIDTH 25.2 % (11.7-14.4)
[2018-01-08 08:19] LABS: ANION GAP 11.2 mmol/L (8-16); CALCIUM 8.1 mg/dL (8.4-10.2); CREATININE, SERUM 1.33 mg/dL (0.57-1.11); MAGNESIUM 1.2 MG/DL (1.3-2.1); POTASSIUM 4.2 mmol/L (3.5-5.1)
[2018-01-08] MEDS ORDERED: MORPHINE SULFATE 2 MG/ML SYR IV PRN (09:45)
[2018-01-08] MEDS ORDERED: MORPHINE SULFATE 4 MG/ML SYR IV PRN (09:45)
[2018-01-08] MEDS: VANCOMYCIN 1GM/NS 250 ML 250 ML IV SCH ×2 (10:27→22:24)
[2018-01-08] MEDS: PIPER-TAZ 3.375 GM 50 ML IV SCH ×2 (14:00→21:03)
[2018-01-08 14:02] LABS: ANISOCYTOSIS SLIGHT; HYPOCHROMASIA SLIGHT; LYMPHOCYTES % (MANUAL) 3 % (19-48); MICROCYTOSIS SLIGHT; MONOCYTES % (MANUAL) 4 % (3.4-9.0); NEUTROPHILS % (MANUAL) 93 % (40-74); PLATELET ESTIMATE ADEQUATE; PLATELET MORPHOLOGY COMMENT NORMAL; RBC MORPHOLOGY COMMENT NORMAL
[2018-01-08] MEDS: ACETAMINOPHEN/CODEINE 300MG - 30MG TAB PO PRN ×2 (16:12→23:55)
[2018-01-09] VITALS (9 sets, daily range): BP systolic 99–144; BP diastolic 57–74
[2018-01-09] MEDS ORDERED: METRONIDAZOLE IV STA ×2 (00:01)
[2018-01-09] MEDS ORDERED: SODIUM CHLORIDE IV STA ×2 (00:01)
[2018-01-09] MEDS ORDERED: METRONIDAZOLE 500MG/NS 100ML 100 ML IV ONE (00:45)
[2018-01-09] MEDS: PANTOPRAZOLE INJ 40 MG in SODIUM CHLORIDE 0.9% 50ML 50 ML IV SCH ×5 (01:23→21:15)
[2018-01-09] MEDS: SODIUM CHLORIDE 0.9% 1000ML 1,000 ML IV SCH ×3 (03:15→17:21)
[2018-01-09] MEDS: PIPER-TAZ 3.375 GM 50 ML IV SCH ×3 (05:06→21:50)
[2018-01-09] MEDS: METRONIDAZOLE 500MG/NS 100ML 100 ML IV SCH ×3 (05:47→17:12)
[2018-01-09] MEDS: ACETAMINOPHEN/CODEINE 300MG - 30MG TAB PO PRN ×3 (05:55→22:45)
[2018-01-09 06:39] LABS: BASOPHILS # (AUTO) 0.1 (0.0-0.1); BASOPHILS % 0.3 % (0.0-1.0); EOSINOPHILS # (AUTO) 0.1 (0.0-0.4); EOSINOPHILS % 0.4 % (0.0-6.0); HEMATOCRIT 27.3 % (34.2-44.1); HEMOGLOBIN 8.1 g/dL (12.0-16.0); LYMPHOCYTES # (AUTO) 0.7 (1.0-3.2); LYMPHOCYTES % 4.3 % (18.0-39.1); MEAN CORPUSCULAR HGB CONC 29.7 g/dL (31-35); MEAN CORPUSCULAR VOLUME 77.6 fL (81-99); MONOCYTES # (AUTO) 0.9 (0.2-0.8); MONOCYTES % 5.5 % (4.4-11.3); NEUTROPHILS # (AUTO) 14.2 (2.1-6.9); NEUTROPHILS % 88.9 % (38.7-80.0); PLATELET COUNT 347 x10e3/uL (140-360); RED BLOOD COUNT 3.52 x10e6/uL (3.6-5.1); RED CELL DISTRIBUTION WIDTH 24.9 % (11.7-14.4)
[2018-01-09 07:08] LABS: BLOOD UREA NITROGEN 10 mg/dL (7-26); BUN/CREATININE RATIO 12 (6-25); CALCIUM 8.2 mg/dL (8.4-10.2); CARBON DIOXIDE 21 mmol/L (22-29); CHLORIDE 107 mmol/L (98-107); CREATININE, SERUM 0.85 mg/dL (0.57-1.11); EST GLOMERULAR FILTRATION RATE > 60 ML/MIN (60-); GLUCOSE 78 mg/dL (74-118); SODIUM 136 mmol/L (136-145)
[2018-01-09 07:09] LABS: RBC MORPHOLOGY COMMENT ABNORMAL
[2018-01-09] MEDS: INSULIN REGULAR, HUMAN 100 UNIT/1 ML 3ML VIAL SQ SCH ×4 (07:30→21:00)
[2018-01-09 07:49] LABS: ANISOCYTOSIS MODERATE; BURR CELLS LF; MICROCYTOSIS SLIGHT; PLATELET ESTIMATE ADEQUATE; PLATELET MORPHOLOGY COMMENT FEW LARGE
[2018-01-09] MEDS: VANCOMYCIN 1GM/NS 250 ML 250 ML IV SCH ×2 (09:30→22:20)
[2018-01-09] MEDS ORDERED: MORPHINE SULFATE 2 MG/ML SYR IV PRN (14:00)
[2018-01-09] MEDS: CALCIUM CARBONATE 500 MG CHEWABLE TABS PO SCH (17:12)
[2018-01-09] MEDS ORDERED: PANTOPRAZOLE 40 MG 10ML VIAL ONE (19:48)
[2018-01-09] MEDS ORDERED: SODIUM CHLORIDE 0.9% 50ML 50 ML ONE (23:35)
[2018-01-10] VITALS (8 sets, daily range): BP systolic 131–141; BP diastolic 62–78
[2018-01-10] MEDS: ACETAMINOPHEN 325 MG TAB PO PRN (00:14)
[2018-01-10] MEDS: PANTOPRAZOLE INJ 40 MG in SODIUM CHLORIDE 0.9% 50ML 50 ML IV SCH ×4 (02:02→18:17)
[2018-01-10] MEDS: PIPER-TAZ 3.375 GM 50 ML IV SCH ×3 (05:33→21:50)
[2018-01-10] MEDS: METRONIDAZOLE 500MG/NS 100ML 100 ML IV SCH ×4 (06:21→18:17)
[2018-01-10 07:10] LABS: BASOPHILS % 0.3 % (0.0-1.0); EOSINOPHILS # (AUTO) 0.1 (0.0-0.4); HEMOGLOBIN 8.1 g/dL (12.0-16.0); LYMPHOCYTES # (AUTO) 0.9 (1.0-3.2); MEAN CORPUSCULAR HEMOGLOBIN 22.4 pg (28-32); MEAN CORPUSCULAR HGB CONC 28.9 g/dL (31-35); MEAN CORPUSCULAR VOLUME 77.6 fL (81-99); MONOCYTES % 7.6 % (4.4-11.3); NEUTROPHILS # (AUTO) 10.8 (2.1-6.9); NEUTROPHILS % 83.6 % (38.7-80.0); PLATELET COUNT 369 x10e3/uL (140-360); RED BLOOD COUNT 3.61 x10e6/uL (3.6-5.1); RED CELL DISTRIBUTION WIDTH 25.1 % (11.7-14.4)
[2018-01-10] MEDS: INSULIN REGULAR, HUMAN 100 UNIT/1 ML 3ML VIAL SQ SCH ×4 (07:30→21:00)
[2018-01-10 07:40] LABS: ANION GAP 9.3 mmol/L (8-16); BLOOD UREA NITROGEN 7 mg/dL (7-26); BUN/CREATININE RATIO 9 (6-25); CALCIUM 7.8 mg/dL (8.4-10.2); CARBON DIOXIDE 23 mmol/L (22-29); CHLORIDE 106 mmol/L (98-107); CREATININE, SERUM 0.74 mg/dL (0.57-1.11); EST GLOMERULAR FILTRATION RATE > 60 ML/MIN (60-); GLUCOSE 99 mg/dL (74-118); POTASSIUM 3.3 mmol/L (3.5-5.1); SODIUM 135 mmol/L (136-145)
[2018-01-10 08:14] LABS: RBC MORPHOLOGY COMMENT ABNORMAL
[2018-01-10 08:15] LABS: ANISOCYTOSIS MODERATE; HYPOCHROMASIA SLIGHT; MICROCYTOSIS SLIGHT; OVALOCYTES FEW; PLATELET ESTIMATE SLIGHTLY INCREASED; PLATELET MORPHOLOGY COMMENT FEW LARGE; POIKILOCYTOSIS SLIGHT
[2018-01-10] MEDS ORDERED: SODIUM CHLORIDE 0.9% 50ML 50 ML ONE (08:29)
[2018-01-10] MEDS: ACETAMINOPHEN/CODEINE 300MG - 30MG TAB PO PRN ×3 (08:30→23:44)
[2018-01-10] MEDS: CALCIUM CARBONATE 500 MG CHEWABLE TABS PO SCH ×2 (08:41→17:17)
[2018-01-10] MEDS: VANCOMYCIN 1GM/NS 250 ML 250 ML IV SCH ×2 (08:42→22:20)
[2018-01-10] MEDS ORDERED: SODIUM CHLORIDE 0.9% 1000ML 1,000 ML IV SCH (09:00)
[2018-01-10] MEDS ORDERED: POTASSIUM CHLORIDE 20MEQ/100ML 100 ML IV ONE (10:45)
[2018-01-10] MEDS: SODIUM CHLORIDE IV SCH (10:45)
[2018-01-10] MEDS: MULTIVITAMINS IV SCH (10:45)
[2018-01-10] MEDS ORDERED: CALCIUM GLUCONATE 10% INJ 9.3 MEQ in SODIUM CHLORIDE 0.9% 100 ML 100 ML IV ONE (12:00)
[2018-01-10] MEDS ORDERED: POTASSIUM CHLORIDE 10 MEQ TABCR PO NR (13:00)
[2018-01-11] VITALS: BP 139/64
[2018-01-11] MEDS: METRONIDAZOLE 500MG/NS 100ML 100 ML IV SCH ×2 (00:20→06:30)
[2018-01-11] MEDS: PANTOPRAZOLE INJ 40 MG in SODIUM CHLORIDE 0.9% 50ML 50 ML IV SCH ×3 (01:31→08:15)
[2018-01-11 04:00] VITALS: BP 138/64
[2018-01-11] MEDS: ACETAMINOPHEN/CODEINE 300MG - 30MG TAB PO PRN ×2 (05:50→12:17)
[2018-01-11] MEDS: SODIUM CHLORIDE IV SCH (05:50)
[2018-01-11] MEDS: MULTIVITAMINS IV SCH (05:50)
[2018-01-11] MEDS: PIPER-TAZ 3.375 GM 50 ML IV SCH (06:00)
[2018-01-11 07:12] LABS: BASOPHILS # (AUTO) 0.1 (0.0-0.1); BASOPHILS % 0.5 % (0.0-1.0); EOSINOPHILS # (AUTO) 0.4 (0.0-0.4); EOSINOPHILS % 3.1 % (0.0-6.0); HEMATOCRIT 31.7 % (34.2-44.1); HEMOGLOBIN 9.4 g/dL (12.0-16.0); LYMPHOCYTES # (AUTO) 1.3 (1.0-3.2); LYMPHOCYTES % 10.4 % (18.0-39.1); MEAN CORPUSCULAR HEMOGLOBIN 22.7 pg (28-32); MEAN CORPUSCULAR HGB CONC 29.7 g/dL (31-35); MEAN CORPUSCULAR VOLUME 76.4 fL (81-99); MONOCYTES # (AUTO) 1.4 (0.2-0.8); MONOCYTES % 11.3 % (4.4-11.3); NEUTROPHILS % 74.3 % (38.7-80.0); PLATELET COUNT 377 x10e3/uL (140-360); RED BLOOD COUNT 4.15 x10e6/uL (3.6-5.1); RED CELL DISTRIBUTION WIDTH 24.8 % (11.7-14.4)
[2018-01-11] MEDS: INSULIN REGULAR, HUMAN 100 UNIT/1 ML 3ML VIAL SQ SCH ×2 (07:30→11:30)
[2018-01-11 07:43] LABS: ANION GAP 12.2 mmol/L (8-16); BLOOD UREA NITROGEN 5 mg/dL (7-26); BUN/CREATININE RATIO 7 (6-25); CALCIUM 8.1 mg/dL (8.4-10.2); CARBON DIOXIDE 23 mmol/L (22-29); CHLORIDE 106 mmol/L (98-107); CREATININE, SERUM 0.71 mg/dL (0.57-1.11); EST GLOMERULAR FILTRATION RATE > 60 ML/MIN (60-); GLUCOSE 106 mg/dL (74-118); POTASSIUM 3.2 mmol/L (3.5-5.1); SODIUM 138 mmol/L (136-145)
[2018-01-11 08:34] LABS: EOSINOPHILS % (MANUAL) 3 % (0-7); LYMPHOCYTES % (MANUAL) 5 % (19-48); MONOCYTES % (MANUAL) 11 % (3.4-9.0); NEUTROPHILS % (MANUAL) 76 % (40-74)
[2018-01-11 08:35] LABS: HYPOCHROMASIA SLIGHT; PLATELET ESTIMATE ADEQUATE; PLATELET MORPHOLOGY COMMENT NORMAL; RBC MORPHOLOGY COMMENT NORMAL
[2018-01-11 08:36] LABS: ANISOCYTOSIS SLIGHT; HOWELL-JOLLY BODIES FEW
[2018-01-11] MEDS: VANCOMYCIN 1GM/NS 250 ML 250 ML IV SCH (09:30)
[2018-01-11] MEDS ORDERED: MAGNESIUM OXID400 MG PO (09:41)
[2018-01-11] MEDS ORDERED: CEFTIN PO (09:41)
[2018-01-11] MEDS ORDERED: TYLENOL # 31 EA PO (09:41)
[2018-01-11] MEDS ORDERED: Calcium Carbonate 500MG Chew PO (09:41)
[2018-01-11] MEDS ORDERED: PANTOPRAZOLE SO40 MG PO (09:41)
[2018-01-11] MEDS ORDERED: METRONIDAZOLE500 MG PO (09:41)
[2018-01-11] MEDS ORDERED: MAGNESIUM SULFATE 2GM/50ML 50 ML IV ONE (09:45)
[2018-01-11] MEDS ORDERED: POTASSIUM CHLORIDE 20 MEQ TAB CR PO NR (09:45)
[2018-01-11 10:07] VITALS: BP 139/63
[2018-01-11 11:01] VITALS: BP 139/63
[2018-01-11 11:56] VITALS: BP 129/61
--- NOTE | 2018-01-11 16:52 | Discharge Summary ---
ADMITTING DIAGNOSES 1. Severe abdominal pain. 2. Upper gastrointestinal bleed with positive fecal occult blood test. 3. Acute blood loss anemia. 4. Iron deficiency. 5. Hyperglycemia without diagnosis of diabetes. DISCHARGE DIAGNOSES 1. Severe abdominal pain. 2. Upper gastrointestinal bleed with positive fecal occult blood test. 3. Acute blood loss anemia. 4. Iron deficiency. 5. Hyperglycemia without diagnosis of diabetes. 6. Perforated duodenal ulcer with diffuse bilious peritonitis. HISTORY: The patient has no medical history but has a surgical history of gastric bypass in 2004. 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 HOSPITAL COURSE: This 42-year-old female presented with epigastric and right upper quadrant abdominal pain for the last couple of days. The patient was seen here a couple of weeks ago for weakness and found to be anemic. She was given 2 units of blood and sent home. She saw Dr. Bliss as an outpatient a few days ago but has had no endoscopy done. The patient feels weak and short of breath and was found to have a hemoglobin of 6.8 along with the abdominal pain. On admission, GI was consulted, who then consulted surgery. The patient was started on an IV Protonix drip and given 2 units of blood due to her hemoglobin. The patient is allergic to iron and is refusing a hematology consult. CT of the abdomen on admission showed mild amount of abdominal and pelvic ascites, appears new compared to the prior study. No acute abdominal or pelvic abnormality. Tiny right pleural effusion. KUB showed dilated bowel loops mostly in the left abdomen suspicious for postsurgical ileus versus at least partial bowel obstruction. Per surgery, he ordered an exploratory lap and repair of perforated duodenal ulcer on January 06, 2018. The patient had a urine culture done that was negative. After the surgery, the patient felt much better. Post transfusion, her hemoglobin went up to 12.5 but then was back in the 8's the very next day. Per GI, he is not concerned as it appears the 12.5 was a lab error. At the time of discharge, her hemoglobin was 9.4. Sodium 138, potassium 3.2 which was repleted prior to discharge, magnesium 1 which was repleted prior to discharge. The patient is tolerating foods, having bowel movements, passing flatus. The patient was sent home with Tylenol No. 3, magnesium oxide, Flagyl, Protonix, Ceftin and Tums. She will follow up with primary care and GI in 1 to 2 weeks. Dictated by Essence Kinney NP. BIANCA HARTMAN MD Job#: [id number]
[2018-01-11] MEDS ORDERED: CALCIUM CARBONATE 500 MG CHEWABLE TABS PO SCH (17:00)
[2018-01-11] MEDS ORDERED: MAGNESIUM OXIDE 400 MG TAB PO SCH (17:00)
== END 2018-01-11 13:10 | disposition home or self-care (01) | DRG 327 ==
LOC: ER 13:19 → ERHOLD 16:18 → MED/SURG 17:37
PROVIDERS: ADMIT Internal Medicine; ATTEND Internal Medicine
PROC: 30233N1 Transfusion of Nonautologous Red Blood Cells into Peripheral Vein, Percutaneous Approach (ICD-10-PCS; 2018-01-05)
PROC: 0DQ90ZZ Repair Duodenum, Open Approach (ICD-10-PCS; principal; 2018-01-06 22:00)
DX: K26.5 Chronic or unspecified duodenal ulcer with perforation (principal); D62 Acute posthemorrhagic anemia; R18.8 Other ascites; K56.7 Ileus, unspecified; E61.1 Iron deficiency; R73.9 Hyperglycemia, unspecified; G40.909 Epilepsy, unspecified, not intractable, without status epilepticus; Z98.84 Bariatric surgery status
CPT/HCPCS: 36415; 51700; 74018; 74177; 80048; 80053; 80202; 81001; 82270; 82607; 82728; 82746; 82948; 83036; 83540; 83690; 83735; 83880; 84439; 84443; 84466; 84702; 85025; 85045; 85610; 85730; 86850; 86900; 86920; 87086; 99285; J0610; J0694; J0696; J1100; J1170; J2001; J2060; J2250; J2270; J2370; J2405; J2543; J3370; J3480; J7030; J7050; P9016; Q9967

== ENCOUNTER 2018-12-29 04:42 | Emergency (ER) | payer OTHER ==
[~2018-12-29] VITALS: Ht 170.2 cm; Wt 60.3 kg
[~2018-12-29 04:42] MED LIST changes: +CEFTIN PO; +Calcium Carbonate 500MG Chew PO; +MAGNESIUM OXID400 MG PO; +METRONIDAZOLE500 MG PO; +PANTOPRAZOLE SO40 MG PO; +TYLENOL # 31 EA PO
[2018-12-29] MEDS ORDERED: FAMOTIDINE 20 MG TAB PO ONE (04:45)
[2018-12-29] MEDS ORDERED: METHYLPREDNISOLONE SOD SUCC 125 MG/2ML VIAL IM ONE (04:45)
[2018-12-29] MEDS ORDERED: DIPHENHYDRAMINE HCL INJ 50 MG/ML VIAL IM ONE (04:45)
--- OUTSIDE RECORDS SUMMARY | 2018-12-29 04:45 | XMS REPORT ---
Author Author [facility] Address Unknown Phone Unavailable Care Team Providers Care Chucking Machine Set Up Operator Name Role Phone BIANCA HARTMAN Unavailable Unavailable Problems This patient has no known problems. Allergies, Adverse Reactions, Alerts This patient has no known allergies or adverse reactions. Medications This patient has no known medications. Results Test Description Test Time Test Comments Text Results Atomic Results Result Comments ABDOMEN-1VIEW (KUB) [place] [address] Patient Name: SAVANNA ALVA MR #: [id number] : 1975 Age/Sex: 42/F Req #: [id number] Adm Physician: BIANCA HARTMAN MD Ordered by: MIROSLAVA ACSAREZ MD Report #: [id number] Location: MED/SURG Room/Bed: [facility] Procedure: [id number] DX/ABDOMEN-1VIEW (KUB) Exam Date: 01/06/18 Exam Time: 1255 REPORT STATUS: Signed PROCEDURE: X-RAY ABDOMEN - KUB COMPARISON: CT dated 01/05/2018 INDICATIONS: ABDOMINAL PAIN FINDINGS: Dilated air-filled bowel loops in the left abdomen. No rectal air is visualized. No signs of pneumoperitoneum. Surgical clips overlying upper abdomen. No acute osseous abnormality. CONCLUSION: Dilated bowel loops, mostly in the left abdomen, suspicious for postsurgical ileus versus at least partial bowel obstruction. Recommend short-term followup. Dictated by: Nicola Bernard M.D. on 01/06/2018 at 13:25 Electronically approved by: Nicola Bernard M.D. on 01/06/2018 at 13:25 Dictated By: NICOLA BERNARD MD 1325 Transcribed By: JESSICA on 01/06/18 1325 COPY TO: ANNA CASAREZ MD CT ABDOMEN/PELVIS W [place] [address] Patient Name: SAVANNA ALVA MR #: [id number] : 1975 Age/Sex: 42/F Req #: [id number] [facility] Physician: BIANCA HARTMAN MD Ordered by: MARTI PATEL REEL FED PRINTER Report #: [id number] Location: [facility] Room/Bed: [place] [address] Procedure: [id number] CT/CT ABDOMEN/PELVIS W Exam Date: 01/05/18 Exam Time: 1535 REPORT STATUS: Signed PROCEDURE: CT ABDOMEN AND PELVIS WITH CONTRAST TECHNIQUE: The abdomen and pelvis were scanned utilizing a multidetector helical scanner from the diaphragm to the lesser trochanter after the IV administration of 100 cc of Isovue 370 and the oral administration of water. Coronal and sagittal multiplanar reformations were obtained. DLP: 216.97 mGy*cm COMPARISON: [facility], CT, CT ABDOMEN/PELVIS W, 04/22/2015, 22:34. INDICATIONS: RIGHT LOWER QUADRANT ABDOMINAL PAIN FINDINGS: LOWER THORAX: Tiny right pleural effusion. HEPATOBILIARY: No focal hepatic lesions. No biliary ductal dilatation. Gallbladder is absent. SPLEEN: No splenomegaly. PANCREAS: No focal masses or ductal dilatation. ADRENALS: No adrenal nodules. KIDNEYS/URETERS: No hydronephrosis, stones, or solid mass lesions. PELVIC ORGANS/BLADDER: Unremarkable. There is a Lee catheter and air present within the bladder. PERITONEUM / RETROPERITONEUM: Mild amount of abdominal and pelvic ascites. This is new compared to the prior study. LYMPH NODES: No lymphadenopathy. VESSELS: Unremarkable. GI TRACT: No distention or wall thickening. Postsurgical meghan nges associated with a gastric bypass. The appendix is not visualized. BONES AND SOFT TISSUES: Unremarkable. IMPRESSION: 1. Mild amount of abdominal and pelvic ascites appears new compared to the prior study. 2. Otherwise no acute abdominal or pelvic abnormality. 3. There is a tiny right pleural effusion. Prabha Stearns D.O. Dictated by: Prabha Stearns D.O. on 01/05/2018 at 16:30 Electronically approved by: Prabha Stearns D.O. on 01/05/2018 at 16:30 Dictated By: PRABHA STEARNS DO 1630 Transcribed By: JESSICA on 01/05/18 1630 COPY TO: MARTI PATEL NP
[2018-12-29] MEDS ORDERED: PREDNISONE20 MG PO (07:00)
[2018-12-29 07:54] VITALS: BP 145/82
== END 2018-12-29 08:00 | disposition home or self-care (01) ==
LOC: ER 04:42
DX: L50.9 Urticaria, unspecified (principal)
CPT/HCPCS: 99282; J2930

== ENCOUNTER 2021-06-14 18:48 | Observation (INO) | payer OTHER ==
[~2021-06-14] VITALS: Ht 167.6 cm; Wt 59.0 kg
[~2021-06-14 18:48] MED LIST changes: +PREDNISONE20 MG PO
[2021-06-14] MEDS ORDERED: SODIUM CHLORIDE 0.9% 250ML 250 ML IV ONE (19:45)
[2021-06-14 20:05] LABS: BASOPHILS # (AUTO) 0.1 (0.0-0.1); BASOPHILS % 1.6 % (0.0-1.0); EOSINOPHILS % 0.6 % (0.0-6.0); LYMPHOCYTES # (AUTO) 1.6 (1.0-3.2); LYMPHOCYTES % 30.5 % (18.0-39.1); MEAN CORPUSCULAR HEMOGLOBIN 15.2 pg (28-32); MEAN CORPUSCULAR HGB CONC 23.3 g/dL (31-35); MEAN CORPUSCULAR VOLUME 65.2 fL (81-99); MONOCYTES # (AUTO) 0.4 (0.2-0.8); MONOCYTES % 8.1 % (4.4-11.3); NEUTROPHILS % 58.8 % (38.7-80.0); PLATELET COUNT 264 x10e3/uL (140-360); RED BLOOD COUNT 3.36 x10e6/uL (3.6-5.1); RED CELL DISTRIBUTION WIDTH 23.3 % (11.7-14.4)
[2021-06-14 20:19] LABS: ALANINE AMINOTRANSFERASE 16 IU/L (0-55); ALBUMIN 3.9 g/dL (3.5-5.0); ALBUMIN/GLOBULIN RATIO 1.2 (0.8-2.0); ALKALINE PHOSPHATASE 75 IU/L (40-150); ANION GAP 15.6 mmol/L (8-16); BLOOD UREA NITROGEN 18 mg/dL (7-26); BUN/CREATININE RATIO 16 (6-25); CALCIUM 8.7 mg/dL (8.4-10.2); CARBON DIOXIDE 24 mmol/L (22-29); CHLORIDE 105 mmol/L (98-107); EST GLOMERULAR FILTRATION RATE 54 ML/MIN (60-); GLUCOSE 102 mg/dL (74-118); POTASSIUM 4.6 mmol/L (3.5-5.1); SODIUM 140 mmol/L (136-145)
[2021-06-14 20:23] LABS: HEMATOCRIT 21.9 % (34.2-44.1); HEMOGLOBIN 5.1 g/dL (12.0-16.0)
[2021-06-14 22:40] VITALS: BP 132/57
[2021-06-14 23:30] VITALS: BP 132/57
[2021-06-15] VITALS (7 sets, daily range): BP systolic 115–128; BP diastolic 72–88
[2021-06-15] MEDS ORDERED: SODIUM CHLORIDE 0.9% 250ML 250 ML ONE (01:27)
[2021-06-15] MEDS ORDERED: ADDERALL 30 MG30 MG PO (04:04)
[2021-06-15] MEDS ORDERED: AMBIEN10 MG PO (04:04)
[2021-06-15 05:58] LABS: BASOPHILS # (AUTO) 0.1 (0.0-0.1); BASOPHILS % 2.1 % (0.0-1.0); EOSINOPHILS # (AUTO) 0.1 (0.0-0.4); EOSINOPHILS % 0.8 % (0.0-6.0); HEMATOCRIT 26.8 % (34.2-44.1); HEMOGLOBIN 7.1 g/dL (12.0-16.0); LYMPHOCYTES # (AUTO) 2.1 (1.0-3.2); LYMPHOCYTES % 35.1 % (18.0-39.1); MEAN CORPUSCULAR HEMOGLOBIN 18.6 pg (28-32); MEAN CORPUSCULAR HGB CONC 26.5 g/dL (31-35); MEAN CORPUSCULAR VOLUME 70.3 fL (81-99); MONOCYTES # (AUTO) 0.5 (0.2-0.8); MONOCYTES % 8.4 % (4.4-11.3); NEUTROPHILS # (AUTO) 3.2 (2.1-6.9); NEUTROPHILS % 53.3 % (38.7-80.0); PLATELET COUNT 243 x10e3/uL (140-360); RED BLOOD COUNT 3.81 x10e6/uL (3.6-5.1); RED CELL DISTRIBUTION WIDTH 25.4 % (11.7-14.4)
[2021-06-15 06:26] LABS: ALBUMIN 3.5 g/dL (3.5-5.0); CREATININE, SERUM 0.99 mg/dL (0.57-1.11)
[2021-06-15 09:52] LABS: HYPOCHROMASIA MODERATE; MICROCYTOSIS MODERATE
[2021-06-15 09:53] LABS: ANISOCYTOSIS MODERATE; PLATELET ESTIMATE ADEQUATE; PLATELET MORPHOLOGY COMMENT NORMAL; RBC MORPHOLOGY COMMENT ABNORMAL
[2021-06-15 09:54] LABS: ELLIPTOCYTE, RBC SLIGHT
[2021-06-15] MEDS ORDERED: SODIUM CHLORIDE 0.9% 250ML 250 ML IV ONE (12:30)
[2021-06-15] MEDS ORDERED: ZOLPIDEM TARTRATE 10 MG TAB PO PRN (22:45)
[2021-06-16] VITALS: BP 140/86
[2021-06-16 04:00] VITALS: BP 116/75
[2021-06-16 06:06] LABS: BASOPHILS # (AUTO) 0.1 (0.0-0.1); BASOPHILS % 2.5 % (0.0-1.0); EOSINOPHILS # (AUTO) 0.1 (0.0-0.4); EOSINOPHILS % 1.3 % (0.0-6.0); HEMATOCRIT 32.7 % (34.2-44.1); LYMPHOCYTES # (AUTO) 1.6 (1.0-3.2); MEAN CORPUSCULAR HEMOGLOBIN 20.1 pg (28-32); MEAN CORPUSCULAR HGB CONC 27.5 g/dL (31-35); MONOCYTES # (AUTO) 0.6 (0.2-0.8); NEUTROPHILS # (AUTO) 2.8 (2.1-6.9); PLATELET COUNT 236 x10e3/uL (140-360); RED BLOOD COUNT 4.48 x10e6/uL (3.6-5.1); RED CELL DISTRIBUTION WIDTH 26.9 % (11.7-14.4)
[2021-06-16 06:27] LABS: ANION GAP 12.1 mmol/L (8-16); CALCIUM 8.4 mg/dL (8.4-10.2); CREATININE, SERUM 0.97 mg/dL (0.57-1.11); POTASSIUM 4.1 mmol/L (3.5-5.1)
[2021-06-16 06:54] VITALS: BP 114/70
[2021-06-16 07:39] VITALS: BP 114/70
[2021-06-16 07:43] VITALS: BP 122/67
[2021-06-16 10:59] VITALS: BP 118/75
== END 2021-06-16 13:42 | disposition home or self-care (01) ==
LOC: ER 19:45 → ERHOLD 22:39 → MED/SURG 22:57
PROVIDERS: ADMIT Internal Medicine; ATTEND Internal Medicine
DX: D50.9 Iron deficiency anemia, unspecified (principal); G47.00 Insomnia, unspecified; Z20.822 Contact with and (suspected) exposure to COVID-19
CPT/HCPCS: 36415 ×3; 80048; 80053 ×2; 84702; 85025 ×3; 86850; 86900; 86920; 93005; 99284; G0378 ×3; J7050 ×2; P9016 ×2; U0002